=== PATIENT | male | born 1990 | race Caucasian/White ===

== ENCOUNTER 2018-12-17 16:45 | Emergency (ER) | payer SELFPAY ==
[~2018-12-17] VITALS: Ht 165.1 cm; Wt 65.8 kg
[2018-12-17 16:49] VITALS: BP 145/87
--- NOTE | 2018-12-17 16:59 | NUR ---
BIB SELF WITH C/O RIGHT EAR PAIN, PT STATES HE PUNTURE HIS RIGHT EAR DRUM WITH A Q-TIP. ATTEMPTED TO INSPECT EAR WITH OTTOSCOPE, PT WITHDRAWING. EAR CANAL APPEARS RED AND SWOLLEN. VSS; PATIENT POSITIONED FOR COMFORT; HOB ELEVATED; BEDRAILS UP X1; BED DOWN. ER MD MADE AWARE OF PT STATUS.
[2018-12-17 17:00] VITALS: BP 145/87
--- NOTE | 2018-12-17 17:00 | NUR ---
PT STATES THAT HE NEEDS TO SPEAK WITH FAMILY REGARDING PETS IN CAR, PT THEN LEFT ED.
--- NOTE | 2018-12-17 17:15 | NUR ---
AWAITING PT RETURN.
--- NOTE | 2018-12-17 17:40 | NUR ---
PATIENT CALLED FOR MD EVALUATION.
--- NOTE | 2018-12-17 17:45 | NUR ---
PATIENT LEFT WITHOUT BEING SEEN BY DR. ZAMAN. NO FURTHER CARE PROVIDED FOR PATIENT.
== END 2018-12-17 17:40 | disposition left against medical advice (07) ==
LOC: MED 16:45
DX: H92.01 Otalgia, right ear (principal); Z53.21 Procedure and treatment not carried out due to patient leaving prior to being seen by health care provider